=== PATIENT | female | born 1945 | race Caucasian/White ===

== ENCOUNTER 2019-12-15 11:45 | Emergency (ER) | payer MEDICARE, SELFPAY ==
--- NOTE | ~2019-12-15 | XR_ITS ---
EXAMINATION: XR tibia fibula LT 2V DATE: 12/15/2019 13:52 INDICATION: Anterior left brunson contusion TECHNIQUE: Anteroposterior and lateral views of the left tibia and fibula were obtained. COMPARISON: 12/27/2018 FINDINGS: Relatively advanced healing with bridging callus formation about a chronic minimally displaced mildly comminuted proximal diaphyseal fractures of the left fibula. Alignment remains essentially anatomic. No acute fractures identified. Mild to moderate osteoarthritis at the talonavicular joint. Remaining joint spaces are unremarkable. No left ankle joint effusion. Soft tissue swelling anterior to the pr oximal tibia. Multiple heterotopic ossicles and surgical clips projecting over the subcutaneous tissu es at the medial left leg which may be related to prior saphenous vein graft harvest. Vascular calcif ications extend throughout the left calf. IMPRESSION: 1. No acute osseous abnormality. 2. Advanced healing of a chronic proximal left fibular diaphyseal fracture. Reviewed, dictated and finalized at location A.
[2019-12-15 13:00] VITALS: BP 147/122; PULSE 69; RESP 13; TEMP 36.2; O2SAT 99
[2019-12-15 13:15] VITALS: BP 190/92; PULSE 62
--- NOTE | 2019-12-15 13:21 | PC.NURSE ---
PATIENT HAS MODERATE AMOUNT OF BRUISING TO BILATERAL LOWER LEGS DUE TO FALL ON MONDAY. ABRASION TO LEFT LOWER LEG CLEANED AND DRESSED (SEE DOCUMENTATION). PT HAS +2 PITTING EDEMA TO LEFT LOWER LEG AND +1 PITTING EDEMA TO RIGHT LOWER LEG.
[2019-12-15 13:30] VITALS: BP 178/96; PULSE 63
--- NOTE | 2019-12-15 13:40 | ED.LOWEXIN ---
HPI - Extremity Injury (Lower) General Chief Complaint: Extremity Injury, Lower Stated Complaint: left leg pain Source: patient Mode of arrival: ambulatory Limitations: no limitations History of Present Illness HPI Narrative: 74 y.o. with D.M., end stage CKD on dialysis, fell forward while attempting to climb up her camper steps 2 days ago banging her left leg against the edge of the step. She had immediate pain followed by bruising. A small abrasion of the leg has been covered with a bandage. She c/o pain in this area with palpation only. No pain with walking. She has had soreness in her right thigh attributed to increase use of this leg going up and down stairs. Also, acute on chronic pain if the left shoulder, also attributed to using this arm to help her get up the camper stairs. Related Data Home Medications Medication Instructions Recorded Confirmed aspirin [Adult Low Dose Aspirin] 81 mg PO DAILY 12/15/19 12/15/19 gabapentin 100 mg PO DAILY 12/15/19 12/15/19 insulin glargine [Lantus Solostar 20 unit SUBCUT HS 12/15/19 12/15/19 U-100 Insulin] insulin lispro [Humalog KwikPen 11 unit SUBCUT AC 12/15/19 12/15/19 Insulin] metoprolol succinate 12.5 mg PO BID 12/15/19 12/15/19 sevelamer carbonate 800 mg PO DAILY 12/15/19 12/15/19 simvastatin 40 mg PO HS 12/15/19 12/15/19 tramadol 50 mg PO PRN 12/15/19 12/15/19 Allergies Allergy/AdvReac Type Severity Reaction Status Date / Time No Known Allergies Allergy Verified 12/15/19 13:15 Review of Systems Constitutional: Constitutional: Denies chills and Denies fever(s) Cardiovascular: Cardiovascular: Denies chest pain Respiratory: Respiratory: Denies cough and Denies dyspnea Gastrointestinal: Gastrointestinal: Denies abdominal pain, Denies diarrhea, Denies nausea and Denies vomiting Hematologic/Lymphatic: Comments: Hx of bruising easily PMFSH Past Medical History Medical History (Updated 12/15/19 @ 14:18 by Donnie Alves MD) Diabetes mellitus End stage chronic kidney disease Hypertension Exam Narrative: Exam Narrative: Pt. walked in unassisted Const: General: no acute distress Orientation/consciousness: patient oriented x3 Extrem: Other: Minor tenderness left lateral subacromial region painless ext/int. roration. Pain with abduction 2+ edema pretibial and pedal superfiicial abrasion 3 mm, left ant. tibia. Ecchymosis over the mid-1/3 of left ant. leg; this area is tender without induration. No left ankle tenderness. Flexes left knee, int/ext rotates left hip without pain. Minor right anterior thigh tenderness. Course Course Emergency Course: negative X ray result discussed. Vital Signs Vital signs: Vital Signs Temperature 36.2 C L 12/15/19 13:00 Pulse Rate 69 12/15/19 13:00 Respiratory Rate 13 12/15/19 13:00 Blood Pressure 147/122 H 12/15/19 13:00 Pulse Oximetry 99 12/15/19 13:00 Temperature 36.2 C L 12/15/19 13:00 Pulse Rate 62 12/15/19 13:45 Respiratory Rate 13 12/15/19 13:00 Blood Pressure 186/89 H 12/15/19 13:45 Pulse Oximetry 99 12/15/19 13:00 MDM - Extremity Injury (Lower) MDM Narrative Medical decision making narrative: Last tetanus August 2018 Differential Diagnosis Differential diagnosis: Likely other (fracture of fibula) Imaging Data Attestation: I personally reviewed and interpreted this imaging study as follows: My impression: no acute fracture Radiologist's impression: MPRESSION: 1. No acute osseous abnormality. 2. Advanced healing of a chronic proximal left fibular diaphyseal fracture. Discharge Plan Discharge Clinical Impression: Abrasion, left lower leg, initial encounter Contusion of left leg Qualifiers: Encounter type: initial encounter Qualified Code(s): S80.12XA - Contusion of left lower leg, initial encounter Patient Disposition: Home, Self-Care Condition: Stable Instructions: Antibiotic Form, Contusion in Adults (ED), Abrasion (ED) Additional Instr
[2019-12-15 13:45] VITALS: BP 186/89; PULSE 62
[2019-12-15 14:21] VITALS: BP 176/91; PULSE 88; RESP 14; O2SAT 100
== END 2019-12-15 14:25 | disposition home or self-care (01) ==
PROVIDERS: Emergency Provider Family Medicine
DX: S80.812A Abrasion, left lower leg, initial encounter (principal); W22.8XXA Striking against or struck by other objects, initial encounter
CPT/HCPCS: 73590; 99281; 99283

== ENCOUNTER 2020-01-30 09:39 | Outpatient (CLI) | payer MEDICARE, SELFPAY ==
[2020-01-30 11:00] LABS: Hemoglobin A1C 8.3 % (<5.7)
== END 2020-01-30 09:40 | disposition home or self-care (01) ==
LOC: CHSLAB 09:41
PROVIDERS: PCP Family Medicine; Visit Provider Family Medicine
DX: E10.22 Type 1 diabetes mellitus with diabetic chronic kidney disease (principal); N18.6 End stage renal disease; Z99.2 Dependence on renal dialysis
CPT/HCPCS: 36415; 83036

== ENCOUNTER 2020-03-03 08:39 | Emergency (ER) | payer MEDICARE, SELFPAY ==
--- NOTE | ~2020-03-03 | XR_ITS ---
EXAMINATION: XR knee RT 3V DATE: 03/03/2020 09:55 INDICATION: Right knee injury. TECHNIQUE: 3 views of right knee were obtained. COMPARISON: Right knee radiographs 01/06/2016 FINDINGS: Bone alignment is normal. No fracture. There is mild osteoarthritis of medial and patellofe moral compartments. There is a small knee joint effusion. There is pretibial soft tissue swelling wit h subcutaneous soft tissue gas, likely from laceration. There are surgical clips in the posteromedial soft tissues. IMPRESSION: 1. Mild right knee osteoarthritis. 2. Small right knee joint effusion. 3. Pretibial soft tissue swelling with subcutaneous soft tissue gas, likely from a laceration. Reviewed, dictated and finalized at location A. IMPRESSION: 1. Mild right knee osteoarthritis. 2. Small right knee joint effusion. 3. Pretibial soft tissue swelling with subcutaneous soft tissue gas, likely fro m a laceration.
[2020-03-03 08:50] VITALS: BP 165/83; PULSE 68; RESP 20; TEMP 36.6; O2SAT 98
--- NOTE | 2020-03-03 08:54 | ED.WOUNDLAC ---
HPI - Wound/Laceration General Chief Complaint: Wound/Laceration Stated Complaint: fell hurt knee and leg Source: patient, EMS and RN notes reviewed Mode of arrival: EMS Limitations: no limitations History of Present Illness HPI narrative: Patient states she was walking in her house she had turned while walking on her carpet. She thinks she tripped over her own feet. Went down on her right knee and has a large laceration on her right knee. Onset (ago): minute(s) Extremity Location: Right: thigh Place: home Patient tetanus UTD: Yes Context: accidental Associated symptoms: pain Treatments prior to arrival: bandage Related Data Home Medications Medication Instructions Recorded Confirmed aspirin [Adult Low Dose Aspirin] 81 mg PO DAILY 12/15/19 03/03/20 gabapentin 100 mg PO DAILY 12/15/19 03/03/20 insulin glargine [Lantus Solostar 25 unit SUBCUT HS 12/15/19 03/03/20 U-100 Insulin] insulin lispro [Humalog KwikPen 11 unit SUBCUT AC 12/15/19 03/03/20 Insulin] metoprolol succinate 12.5 mg PO BID 12/15/19 03/03/20 sevelamer carbonate 800 mg PO DAILY 12/15/19 03/03/20 simvastatin 40 mg PO HS 12/15/19 03/03/20 tramadol 50 mg PO PRN 12/15/19 03/03/20 febuxostat [Uloric] 40 mg PO DAILY 03/03/20 03/03/20 montelukast 10 mg PO DAILY 03/03/20 03/03/20 Allergies Allergy/AdvReac Type Severity Reaction Status Date / Time No Known Allergies Allergy Verified 12/15/19 13:15 Review of Systems Review of Systems: All systems reviewed & are unremarkable except as noted in HPI and below PMFSH Past Medical History Medical History (Updated 03/03/20 @ 09:40 by Kendrick Montelongo MD) Diabetes mellitus End stage chronic kidney disease Hypertension Surgical History Surgical History (Updated 03/03/20 @ 09:35 by Kendrick Montelongo MD) H/O: hysterectomy History of appendectomy History of open heart surgery Hx of cholecystectomy Presence of arteriovenous dialysis shunt Social History Social History (Updated 03/03/20 @ 09:36 by Kendrick Montelongo MD) Smoking status: Never smoker Alcohol intake: never Substance use: never Exam Const: General: healthy appearing and no acute distress Nutritional Appearance: well nourished and obese morbidly obese Orientation/consciousness: patient oriented x3 HENMT: Head: normal to inspection Ears: external ears normal Eyes: Conjunctivae: conjunctivae normal Pupils: Equal, round and reactive pupils present EOM: EOMs intact bilaterally Neck: Neck: normal visual inspection Resp: Effort & Inspection: normal respiratory effort Auscultation: clear to auscultation bilaterally Cardio: Rate: regular rate Rhythm: regular rhythm GI: GI Palp: Yes Soft to palpation and No Tenderness to palpation present (GI) Auscultation: normal bowel sounds Back/Spine/Pelvis: Cervical Spine: cervical ROM normal Thoracic/Lumbar Spine: thoraco-lumbar ROM normal Skin: General skin exam: normal color Rashes: no rashes Wounds: wounds noted laceration right anterior knee size (13 cm) and drainage bloody Neuro: General: patient oriented x3, moves all extremities and no focal motor deficits Speech: normal speech Gait exam (Neuro): Normal gait present Extrem: General: normal to inspection Psych: Appearance: grossly normal and well kempt Mental Status: mental status grossly normal Affect: normal affect Attitude: cooperative Thought content: Yes Normal thought content present Course Vital Signs Vital signs: Vital Signs Temperature 36.6 C 03/03/20 08:50 Pulse Rate 68 03/03/20 08:50 Respiratory Rate 20 03/03/20 08:50 Blood Pressure 165/83 H 03/03/20 08:50 Pulse Oximetry 98 03/03/20 08:50 Temperature 36.3 C L 03/03/20 10:32 Pulse Rate 75 03/03/20 10:32 Respiratory Rate 20 03/03/20 10:32 Blood Pressure 140/78 03/03/20 10:32 Pulse Oximetry 97 03/03/20 10:32 Procedures Laceration Laceration 1: Date: 03/03/20 Time: 09:18 Site: lower extremity (bel
[2020-03-03] MEDS: LIDO 1%/EPINEPHRINE 1:100,000 20 ML VIAL (09:05)
[2020-03-03] MEDS: NEOMYCIN/POLYMYXIN/BACITRACIN OINTMENT PACKET 3 PACKET (09:50)
[2020-03-03 10:32] VITALS: BP 140/78; PULSE 75; RESP 20; TEMP 36.3; O2SAT 97
== END 2020-03-03 10:39 | disposition home or self-care (01) ==
PROVIDERS: Emergency Provider Emergency Medicine; PCP Family Medicine
DX: S81.011A Laceration without foreign body, right knee, initial encounter (principal); W19.XXXA Unspecified fall, initial encounter
CPT/HCPCS: 12035; 73562; 99282; 99283

== ENCOUNTER 2020-10-14 17:38 | Emergency (ER) | payer MEDICARE, SELFPAY ==
--- NOTE | 2020-10-14 18:44 | ED.GENADULT ---
HPI - General Adult General Chief complaint: Skin/Abscess/Foreign Body Stated complaint: iv site will not stop bleeding Source: patient and family Mode of arrival: ambulatory Limitations: no limitations History of Present Illness HPI narrative: Mel is a very pleasant 74F with a PMH of ESRD on dialysis, DMII, and HTN that came in with a large painful skin tear. She was coming home from the surgery center after a procedure on a shunt. When they pulled the IV tape off a lot of skin came with it. It was very painful and bleeding so she came here. She has no other concerns. Related Data Home Medications Medication Instructions Recorded Confirmed aspirin [Adult Low Dose Aspirin] 81 mg PO DAILY 12/15/19 03/03/20 gabapentin 100 mg PO DAILY 12/15/19 03/03/20 insulin glargine [Lantus Solostar 25 unit SUBCUT HS 12/15/19 03/03/20 U-100 Insulin] insulin lispro [Humalog KwikPen 11 unit SUBCUT AC 12/15/19 03/03/20 Insulin] metoprolol succinate 12.5 mg PO BID 12/15/19 03/03/20 sevelamer carbonate 800 mg PO DAILY 12/15/19 03/03/20 simvastatin 40 mg PO HS 12/15/19 03/03/20 tramadol 50 mg PO PRN 12/15/19 03/03/20 febuxostat [Uloric] 40 mg PO DAILY 03/03/20 03/03/20 montelukast 10 mg PO DAILY 03/03/20 03/03/20 Allergies Allergy/AdvReac Type Severity Reaction Status Date / Time No Known Allergies Allergy Verified 12/15/19 13:15 Review of Systems Constitutional: Constitutional: Reports no additional constitutional complaints, Denies chills, Denies fever(s) and Denies weakness Eyes: Eyes: Reports no additional eye complaints ENT: Reports system reviewed and no additional complaints, except as documented Cardiovascular: Cardiovascular: Reports no additional cardiovascular complaints Respiratory: Respiratory: Reports no additional respiratory complaints Gastrointestinal: Gastrointestinal: Reports no additional gastrointestinal complaints Genitourinary: Genitourinary: Reports no additional female genitourinary complaints Musculoskeletal: Musculoskeletal: Reports no additional musculoskeletal complaints Integumentary/Breasts: Skin/Breast: Reports system reviewed and no additional complaints, except as docu Neurologic: Reports system reviewed and no additional complaints, except as documented Psychiatric: Psychiatric: Reports no additional psychiatric complaints Endocrine: Endocrine: Reports no additional endocrine complaints Hematologic/Lymphatic: Hematologic/Lymphatic: Reports no additional hematologic/lymphatic complaints Allergic/Immunologic: Allergic/Immunologic: Reports no additional allergic/immunologic complaints [facility] Past Medical History Medical History Diabetes mellitus End stage chronic kidney disease Hypertension Surgical History Surgical History H/O: hysterectomy History of appendectomy History of open heart surgery Hx of cholecystectomy Presence of arteriovenous dialysis shunt Social History Social History Smoking status: Never smoker Alcohol intake: never Substance use: never Gender identity (if verbalized by the patient): Female Exam Const: General: no acute distress and alert Orientation/consciousness: patient oriented x3 Limitations: No altered mental status HENMT: Head: normal to inspection Other: atrauamatic Eyes: Pupils: Equal, round and reactive pupils present Neck: Neck: normal visual inspection Chest: Chest palpation & inspection: normal inspection of the chest Resp: Effort & Inspection: normal respiratory effort, not labored and not tachypneic Cardio: Rate: regular rate Skin: Other: There was a triangle shaped skin tear that was 4cm by 4x7cm with a skin flap and minor bleeding Neuro: General: patient oriented x3, moves all extremities, no meningeal signs and CN's II-XI intact bilaterally Extr
[2020-10-14 18:59] VITALS: BP 110/58; PULSE 83; RESP 20; TEMP 36.8; O2SAT 98
[2020-10-14 19:05] VITALS: BP 111/62; PULSE 80; RESP 20; TEMP 36.7; O2SAT 98
== END 2020-10-14 19:11 | disposition home or self-care (01) ==
PROVIDERS: Emergency Provider Family Medicine; PCP Family Medicine
DX: S41.119A Laceration without foreign body of unspecified upper arm, initial encounter (principal); W45.8XXA Other foreign body or object entering through skin, initial encounter
CPT/HCPCS: 99282

== ENCOUNTER 2020-12-17 13:51 | Outpatient (CLI) | payer MEDICARE, SELFPAY ==
--- NOTE | ~2020-12-17 | DEXA_ITS ---
Bone Density Report Name: Mel Dixon Age: 75 Sex: Female Ethnicity: White Date of : 1945 Indication: postmenopausal; screening for osteoporosis; prior fracture; end stage renal disease; hysterectomy; rheumatoid arthritis; Referring Provider: Valerie, Gilberto Walsh Study: Bone densitometry was performed. Exam Date: December 17, 2020 Accession number: [id number] Bone Density: Region BMD T-score Z-score Classification AP Spine(L2, L3, L4) 1.265 1.7 4.1 Normal Femoral Neck (Left) 0.552 -2.7 -0.6 Osteoporosis Total Hip (Left) 0.776 -1.4 0.4 Osteopenia Femoral Neck (Right) 0.568 -2.5 -0.5 Osteoporosis Total Hip (Right) 0.735 -1.7 0.0 Osteopenia Femoral Neck Mean 0.560 -2.6 -0.6 Osteoporosis Total Hip Mean 0.756 -1.5 0.2 Osteopenia World Health Organization criteria for BMD impression classify patients as: Normal (T-score at or above -1.0), Osteopenia (T-score between -1.0 and -2.5), or Osteoporosis (T-score at or below -2.5). 10-year Fracture Risk: FRAX not reported because: Some T-score for Spine Total or Hip Total or Femoral Neck at or below -2.5 Previous Exams: Region Exam Age BMD T-score BMD Change BMD Change Date g/cm2 vs Baseline vs Previous AP Spine (L2-L4) 12/17/2020 75 1.265 1.7 -0.142 (-10.1% -0.185 (-12.8% 03/28/2014 68 1.450 3.4 0.043 (3.1%)*! 0.043 (3.1%)* 12/31/2010 65 1.407 3.0 Total Hip(Left) 12/17/2020 75 0.776 -1.4 -0.132 (-14.6% -0.101 (-11.6% 03/28/2014 68 0.878 -0.5 -0.031 (-3.4%) -0.031 (-3.4%) 12/31/2010 65 0.908 -0.3 Total Hip(Right) 12/17/2020 75 0.735 -1.7 -0.157 (-17.6% -0.157 (-17.6% 03/28/2014 68 0.892 -0.4 0.000 (0.0%) 0.000 (0.0%) 12/31/2010 65 0.892 -0.4 *Denotes significance at 95% confidence level, LSC for AP Spine = 0.022 g/cm2, LSC for Total Hip = 0.027 g/cm2 # Denotes dissimilar scan types or analysis methods Clinical Information Provided by Patient: Has had a low trauma fracture Has rheumatoid arthritis Has the following medical conditions: End stage renal disease, Hysterectomy Patient maximum height was 63 Menopause Age: 53 No regular weight bearing exercise Drinks caffeinated beverages Onset of menses at age 14 Number of children 4 Impression: The patient has established osteoporosis, based on the Left Femoral Neck T-score and the existence of a prior fracture. The patient has risk factors, including: previous fractur
--- NOTE | ~2020-12-17 | MM_ITS ---
EXAMINATION: MM screening justino BI w julian HISTORY: Screening mammogram, family history of breast cancer in her sister. TECHNIQUE: Craniocaudal and mediolateral oblique 3-D tomosynthesis images were obtained and synthetic 2-D images were generated. CAD analysis was submitted and interpreted. COMPARISON: 03/07/2019 BREAST PARENCHYMAL COMPOSITION: There are scattered areas of fibroglandular density. FINDINGS: Scattered benign-appearing calcifications are present. There is no evidence of suspicious m ass, calcification, or architectural distortion to suggest malignancy in either breast. There has bee n no suspicious interval change. IMPRESSION: 1. No mammographic evidence of malignancy. 2. Recommend routine screening mammography in one year. BI-RADS Category 2: Benign finding(s). Reviewed, dictated and finalized at location A.
== END 2020-12-17 13:52 | disposition home or self-care (01) ==
LOC: CHSIMG 13:54
PROVIDERS: PCP Family Medicine; Visit Provider Family Medicine
DX: Z12.31 Encounter for screening mammogram for malignant neoplasm of breast (principal); M81.0 Age-related osteoporosis without current pathological fracture
CPT/HCPCS: 77063; 77067; 77080

== ENCOUNTER 2021-05-25 10:33 | Outpatient (CLI) | payer MEDICARE, SELFPAY ==
[2021-05-25 11:01] LABS: Basophils Absolute Auto 0.05 K/mm3 (0.00-0.10); Basophils Percent Auto 0.8 % (0.0-1.0); Eosinophils Absolute Auto 0.17 K/mm3 (0.02-0.50); Eosinophils Percent Auto 2.8 % (1.0-6.0); Hematocrit 40.7 % (35.0-42.0); Hemoglobin 12.5 g/dL (11.7-13.8); Immature Granulocyte Absolute 0.01 K/mm3 (0.00-0.00); Immature Granulocyte Percent A 0.2 % (0.0-0.0); Lymphocytes Absolute Auto 2.25 K/mm3 (1.10-4.50); Lymphocytes Percent Auto 36.6 % (18.0-42.0); Mean Corpuscular HGB Conc 30.7 g/dL (32.0-36.0); Mean Corpuscular Hemoglobin 31.3 pg (27.0-31.0); Mean Platelet Volume 10.8 fl (9.2-11.8); Monocytes Absolute Auto 0.54 K/mm3 (0.10-0.90); Monocytes Percent Auto 8.8 % (2.0-11.0); Neutrophils Absolute Auto 3.1 K/mm3 (1.7-7.2); Neutrophils Percent Auto 50.8 % (50.0-70.0); Platelet Count Result 236 K/mm3 (150-420); Red Blood Count 3.99 M/mm3 (4.20-5.40); Red Cell Distribution Width 14.6 % (11.6-14.4); White Blood Count 6.2 K/mm3 (4.8-10.8)
[2021-05-25 11:13] LABS: Hemoglobin A1C 8.1 % (<5.7)
[2021-05-25 11:38] LABS: Alanine Aminotransferase 13 U/L (14-59); Albumin Level 2.9 g/dL (3.4-5.0); Alkaline Phosphatase 128 U/L (46-116); Anion Gap 15 mmol/L (8-16); Aspartate Amino Transferase 13 U/L (15-37); Bilirubin,Total 0.6 mg/dL (0.00-1.00); Blood Urea Nitrogen 29 mg/dL (7-18); Calcium 8.9 mg/dL (8.5-10.1); Carbon Dioxide 25 mmol/L (21-32); Chloride 104 mmol/L (98-108); Cholesterol 124 mg/dL (0-200); Estimated Glomerular Filt Rate 6; Glucose 143 mg/dL (70-99); HDL Direct 47 mg/dL (40-60); LDL Cholesterol Calculated 33 mg/dL (<130); Osmolality Calculated 305 mOsm/kg (285-295); Potassium 3.8 mmol/L (3.5-5.1); Sodium 144 mmol/L (136-145); Total Protein 6.9 g/dL (6.4-8.2); Triglycerides 221 mg/dL (0-150)
== END 2021-05-25 10:34 | disposition home or self-care (01) ==
LOC: CHSLAB 10:35
PROVIDERS: PCP Family Medicine; Visit Provider Family Medicine
DX: E11.22 Type 2 diabetes mellitus with diabetic chronic kidney disease (principal); N18.6 End stage renal disease; Z99.2 Dependence on renal dialysis; Z79.4 Long term (current) use of insulin; Z00.00 Encounter for general adult medical examination without abnormal findings
CPT/HCPCS: 36415; 80053; 80061; 83036; 85025

== ENCOUNTER 2021-06-05 15:36 | Emergency (ER) | payer MEDICARE, SELFPAY ==
--- NOTE | ~2021-06-05 | XR_ITS ---
EXAMINATION: XR lumbar spine 2-3V DATE: 06/05/2021 17:15 INDICATION: Low back pain post fall TECHNIQUE: Anteroposterior and lateral views of the lumbar spine, and cone-down lateral view of the l umbosacral junction were obtained. COMPARISON: 07/24/2018 FINDINGS: 1-2 mm anterolisthesis L4 on L5. Vertebral body heights are normal. No evident fractures. Moderate di sc height loss at T9-T10. Mild disc height loss at T8-T9, T10-T11, T12-L1, L4-L5 and L5-S1. There are multiple bridging osteophytes in the lumbar and lower thoracic spine consistent with diffuse idiopat hic skeletal hyperostosis (DISH). Moderate lower lumbar facet osteoarthritis. Sacral arches are intac t. Extensive scattered vascular calcifications involving multiple arteries in the abdomen and pelvis. Visualized lung bases are clear. Thin curvilinear calcification along the posterior left atrium whic h could be pericardial catheter location or mural calcification IMPRESSION: 1. Mild thoracolumbar spondylosis. No evident acute osseous abnormality. 2. Mural versus pericardial calcification along the posterior left atrium. Reviewed, dictated and finalized at location H. [employer]
--- NOTE | ~2021-06-05 | XR_ITS ---
EXAMINATION: XR tibia fibula RT 2V, XR ankle RT min 3V, XR foot RT min 3V DATE: 06/05/2021 INDICATION: TECHNIQUE: 1. Anteroposterior and lateral views of the right lower leg were obtained. 2. Anteroposterior, mortise, additional oblique and lateral view of the right ankle were obtained. 3. Dorsoplantar, two oblique and lateral views of the right foot were obtained. COMPARISON: None. FINDINGS: Diffuse osteopenia. 1 cortical width anterior displacement of an oblique fracture at the proximal rig ht fibular diaphysis. Normal alignment and joint space at the right knee with possible small knee irene nt effusion. Pes planus suggested at the right foot although weightbearing imaging would be required for diagnostic determination. No other acute fractures identified. The osteotomy at the medial head o f the right first metatarsal. Severe osteoarthritis at the navicular cuneiform articulation. Moderate osteoarthritis at the third-fifth tarsal metatarsal joints and at the first metatarsophalangeal join t. Mild osteoarthritis involving the majority of the remaining joints in the right foot. Moderate-siz ed plantar calcaneal spur. No evident right ankle joint effusion. Soft tissue swelling about the ankl e and hindfoot. Extensive scattered vascular calcifications. Surgical clips in the soft tissues at th e medial aspect of the knee which may relate to prior saphenous vein graft harvest. IMPRESSION: 1. One cortical width displacement of a fracture the proximal right fibular diaphysis. No other fract ures identified. 2. 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 2. Possible small right knee joint effusion. Reviewed, dictated and finalized at location H. STICS ANALYST IMPRESSION: 1. One cortical width displacement of a fracture the proximal right fibular eliana physis. No other fractures identified. 2. 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 2. Possible small right knee joint effusion. IMPRESSION: 1. One cortical width displacement of a fracture the proximal right fibular eliana physis. No other fractures identified. 2. 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 2. Possible small right knee joint effusion.
--- NOTE | 2021-06-05 16:00 | ED.FALL ---
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 -- Right leg bruising, swelling and pain -- pain around the right ankle and foot. No head injury. The patient is not on any anticoagulation. MD complaint: fall Onset (ago): day(s) ( Five days ago) Fall from: out of bed and other ( she slid out of the bed/chair) Fall witnessed: yes, by family Place fall occurred: home Loss of consciousness: none Prolonged down time: no Symptoms prior to fall: none Context: tripped/slipped Location of injury: back and other ( right lower extremity) Location of injury - extremities: Right: lower leg, ankle and foot Quality: sharp Associated symptoms (after fall): unable to walk Related Data Home Medications Medication Instructions Recorded Confirmed aspirin [Adult Low Dose Aspirin] 81 mg PO DAILY 12/15/19 06/05/21 gabapentin 100 mg PO DAILY 12/15/19 06/05/21 insulin glargine [Lantus Solostar 20 unit SUBCUT 12/15/19 06/05/21 U-100 Insulin] insulin lispro [Humalog KwikPen 11 unit SUBCUT AC 12/15/19 06/05/21 Insulin] metoprolol succinate 25 mg PO DAILY 12/15/19 06/05/21 sevelamer carbonate 800 mg PO DAILY 12/15/19 06/05/21 simvastatin 40 mg PO HS 12/15/19 06/05/21 febuxostat [Uloric] 40 mg PO DAILY 03/03/20 06/05/21 montelukast 10 mg PO DAILY 03/03/20 06/05/21 B complex-vitamin C-folic acid 1 tablet PO DAILY 06/05/21 06/05/21 [Carolann-Helen] alprazolam 0.25 mg PO DAILY PRN 06/05/21 06/05/21 clopidogrel 75 mg PO DAILY 06/05/21 06/05/21 Allergies Allergy/AdvReac Type Severity Reaction Status Date / Time No Known Allergies Allergy Verified 06/05/21 16:12 Review of Systems Review of Systems: All systems reviewed & are unremarkable except as noted in HPI and below Constitutional: Constitutional: Reports as per HPI and Reports no additional constitutional complaints Eyes: Eyes: Reports as per HPI and Reports no additional eye complaints ENT: Reports system reviewed and no additional complaints, except as documented Cardiovascular: Cardiovascular: Reports as per HPI and Reports no additional cardiovascular complaints Respiratory: Respiratory: Reports as per HPI and Reports no additional respiratory complaints Gastrointestinal: Gastrointestinal: Reports as per HPI and Reports no additional gastrointestinal complaints Genitourinary: Comments: patient is on hemodialysis via right tunneled hemodialysis catheter. Musculoskeletal: Musculoskeletal: Reports back pain and Reports arthralgias Integumentary/Breasts: Comments: Bruising of his right leg and left buttock. 1 cm right foot ulcer Neurologic: Reports system reviewed and no additional complaints, except as documented Comments: history of neuropathy with decreased sensation distally Psychiatric: Psychiatric: Reports no additional psychiatric complaints Endocrine: Endocrine: Reports no additional endocrine complaints Hematologic/Lymphatic: Hematologic/Lymphatic: Reports no additional hematologic/lymphatic complaints Allergic/Immunologic: Allergic/Immunologic: Reports no additional allergic/immunologic complaints PMFSH Past Medical History Medical History Diabetes mellitus End stage chronic kidney disease Hypertension Surgical History Surgical History H/O: hysterectomy History of appendectomy History of open heart surgery Hx of cholecystectomy Presence of arteriovenous dialysis shunt
[2021-06-05 16:05] VITALS: BP 149/44; PULSE 75; RESP 20; TEMP 36.6; O2SAT 98
[2021-06-05] MEDS: HYDROcodone/acetaminophen (*CRX) 5-325 MG TABLET 1 TAB PO (17:18)
[2021-06-05 18:36] VITALS: BP 130/99; PULSE 75; RESP 20; TEMP 36.7; O2SAT 98
== END 2021-06-05 18:38 | disposition home or self-care (01) ==
PROVIDERS: Emergency Provider Internal Medicine Critical Care Medicine; PCP Family Medicine
DX: S82.831A Other fracture of upper and lower end of right fibula, initial encounter for closed fracture (principal); W19.XXXA Unspecified fall, initial encounter; E11.9 Type 2 diabetes mellitus without complications; N18.6 End stage renal disease; I10 Essential (primary) hypertension
CPT/HCPCS: 72100; 73590; 73610; 73630; 99283; 99284; A9270

== ENCOUNTER 2021-08-16 08:50 | Outpatient (RCR) | payer MEDICARE, SELFPAY | END 2021-09-15 23:59 | disposition home or self-care (01) | LOC: CHSWOUND 08:50 | PROVIDERS: PCP Family Medicine; Visit Provider Nurse Practitioner Family | DX: E11.621 Type 2 diabetes mellitus with foot ulcer (principal); L97.418 Non-pressure chronic ulcer of right heel and midfoot with other specified severity; E11.22 Type 2 diabetes mellitus with diabetic chronic kidney disease; I12.0 Hypertensive chronic kidney disease with stage 5 chronic kidney disease or end stage renal disease; N18.6 End stage renal disease; Z99.2 Dependence on renal dialysis; I25.2 Old myocardial infarction; Z95.1 Presence of aortocoronary bypass graft | CPT/HCPCS: 99213; G0463 ==